=== PATIENT | male | born 1985 | race Asian ===

== ENCOUNTER 2020-11-22 23:55 | Emergency (ER) | payer BC ==
[~2020-11-22] VITALS: Ht 182.9 cm; Wt 77.1 kg
[2020-11-23 00:10] VITALS: BP_SYST 122
[2020-11-23] MEDS: DIPH-TET-PERTUS Vaccine 0.5 ML VIAL (ADACEL) I.M. ONE (00:44)
[2020-11-23] MEDS: LIDOCAINE 1% 10 MG/ML, 20 ML MDV INJ ONE (01:18)
[2020-11-23 01:26] VITALS: BP_SYST 122
== END 2020-11-23 01:26 | disposition home or self-care (01) ==
LOC: SED 23:55
DX: S61.412A Laceration without foreign body of left hand, initial encounter (principal); W25.XXXA Contact with sharp glass, initial encounter; Y93.89 Activity, other specified; Y92.89 Other specified places as the place of occurrence of the external cause; Y99.8 Other external cause status
CPT/HCPCS: 99283

== ENCOUNTER 2020-12-06 10:49 | Emergency (ER) | payer BC ==
[~2020-12-06] VITALS: Ht 172.7 cm; Wt 77.1 kg
[2020-12-06 10:57] VITALS: BP_SYST 122
[2020-12-06 11:20] VITALS: BP_SYST 122
== END 2020-12-06 11:20 | disposition home or self-care (01) ==
LOC: SED 10:49
DX: S61.412D Laceration without foreign body of left hand, subsequent encounter (principal); X58.XXXD Exposure to other specified factors, subsequent encounter
CPT/HCPCS: 99281